=== PATIENT | male | born 1950 | race Caucasian/White ===

== ENCOUNTER 2024-07-27 16:39 | Outpatient (CLI) | payer MEDICARE, SELFPAY ==
[2024-07-27 16:43] LABS: Abs Immature Grans 0.03 10^3/uL (0.0-0.06); Absolute Basophil Count 0.04 10^3/uL (0.0-0.2); Absolute Eosinophil Count 0.41 10^3/uL (0.0-0.7); Absolute Lymphocyte Count 1.08 10^3/uL (1.2-3.4); Absolute Monocyte Count 0.82 10^3/uL (0.1-0.8); Absolute Neutrophil Count 5.25 10^3/uL (1.2-6.7); Basophils % 0.5 %; Eosinophils % 5.4 %; HCT 40.2 % (40.0-50.0); HGB 12.9 g/dL (13.5-17.5); Immature Grans % 0.4 %; Lymphocytes % 14.2 %; MCH 28.5 pg (27.0-33.0); MCHC 32.1 % (32.0-36.0); MCV 89 fL (80-95); MPV 10.2 fL (8.0-11.0); Monocytes % 10.7 %; Neutrophils % 68.8 %; Platelet Count 222 10^3/uL (130-400); RBC 4.53 10^6/uL (4.36-5.78); RDW 14.6 % (11.8-14.1); RDW-SD 47.2 fL; WBC 7.63 10^3/uL (4.4-10.8)
[2024-07-27 17:03] LABS: ALT 23 U/L (16-63); AST 20 U/L (15-37); Albumin 3.7 g/dL (3.4-5.0); Alkaline Phosphatase 109 U/L (46-116); Anion Gap 10.5 mmol/L (3-11); BUN 27 mg/dL (7-18); Bilirubin, Total 0.5 mg/dL (0.2-1.0); CO2 25.5 mmol/L (21.0-32.0); CREATININE 1.2 mg/dL (0.70-1.30); Calcium 9.3 mg/dL (8.5-10.1); Chloride 105 mmol/L (98-107); Estimated GFR 63.85 (mL/min/1.73m2); Glucose 124 mg/dL (74-106); Potassium 4.7 mmol/L (3.5-5.1); Sodium 141 mmol/L (136-145); Total Protein 6.9 g/dL (6.4-8.2)
[2024-08-01 14:41] LABS: DPYD Phenotype Normal metabolizer; DPYD Total Activity Score 2
== END 2024-07-27 16:40 | disposition home or self-care (01) ==
PROVIDERS: Visit Provider Internal Medicine Hematology & Oncology
DX: C20 Malignant neoplasm of rectum (principal)
CPT/HCPCS: 36415; 80053; 81232; 85025

== ENCOUNTER 2024-08-08 02:13 | Outpatient (CLI) | payer MEDICARE, SELFPAY ==
[2024-08-08 08:59] LABS: Abs Immature Grans 0.02 10^3/uL (0.0-0.06); Absolute Basophil Count 0.05 10^3/uL (0.0-0.2); Absolute Eosinophil Count 0.57 10^3/uL (0.0-0.7); Absolute Lymphocyte Count 0.71 10^3/uL (1.2-3.4); Absolute Monocyte Count 0.41 10^3/uL (0.1-0.8); Absolute Neutrophil Count 4.55 10^3/uL (1.2-6.7); Basophils % 0.8 %; HCT 40.8 % (40.0-50.0); HGB 12.9 g/dL (13.5-17.5); Immature Grans % 0.3 %; Lymphocytes % 11.3 %; MCH 28.1 pg (27.0-33.0); MCHC 31.6 % (32.0-36.0); MCV 89 fL (80-95); MPV 9.6 fL (8.0-11.0); Monocytes % 6.5 %; Neutrophils % 72.1 %; Platelet Count 209 10^3/uL (130-400); RBC 4.59 10^6/uL (4.36-5.78); RDW 14.6 % (11.8-14.1); RDW-SD 47.2 fL; WBC 6.31 10^3/uL (4.4-10.8)
[2024-08-08 09:14] LABS: ALT 23 U/L (16-63); AST 21 U/L (15-37); Albumin 3.7 g/dL (3.4-5.0); Alkaline Phosphatase 112 U/L (46-116); Anion Gap 8.8 mmol/L (3-11); BUN 23 mg/dL (7-18); Bilirubin, Total 0.6 mg/dL (0.2-1.0); CO2 28.2 mmol/L (21.0-32.0); CREATININE 1.1 mg/dL (0.70-1.30); Calcium 8.9 mg/dL (8.5-10.1); Chloride 106 mmol/L (98-107); Estimated GFR 70.88 (mL/min/1.73m2); Glucose 180 mg/dL (74-106); Potassium 4.6 mmol/L (3.5-5.1); Sodium 143 mmol/L (136-145); Total Protein 6.9 g/dL (6.4-8.2)
== END 2024-08-08 02:14 | disposition home or self-care (01) ==
LOC: LBO 02:14
PROVIDERS: Visit Provider Internal Medicine Hematology & Oncology
DX: C20 Malignant neoplasm of rectum (principal)
CPT/HCPCS: 36415; 80053; 85025

== ENCOUNTER 2024-08-14 02:40 | Outpatient (CLI) | payer MEDICARE, SELFPAY ==
[2024-08-14 10:38] LABS: Abs Immature Grans 0.05 10^3/uL (0.0-0.06); Absolute Basophil Count 0.03 10^3/uL (0.0-0.2); Absolute Eosinophil Count 0.36 10^3/uL (0.0-0.7); Absolute Lymphocyte Count 0.48 10^3/uL (1.2-3.4); Absolute Monocyte Count 0.38 10^3/uL (0.1-0.8); Absolute Neutrophil Count 3.65 10^3/uL (1.2-6.7); Basophils % 0.6 %; Eosinophils % 7.3 %; HCT 38.8 % (40.0-50.0); HGB 12.3 g/dL (13.5-17.5); Lymphocytes % 9.7 %; MCH 27.7 pg (27.0-33.0); MCHC 31.7 % (32.0-36.0); MCV 87 fL (80-95); MPV 9.4 fL (8.0-11.0); Monocytes % 7.7 %; Neutrophils % 73.7 %; Platelet Count 174 10^3/uL (130-400); RBC 4.44 10^6/uL (4.36-5.78); RDW 14.6 % (11.8-14.1); WBC 4.95 10^3/uL (4.4-10.8)
[2024-08-14 11:07] LABS: ALT 19 U/L (16-63); AST 18 U/L (15-37); Albumin 3.5 g/dL (3.4-5.0); Alkaline Phosphatase 89 U/L (46-116); Anion Gap 9.8 mmol/L (3-11); BUN 22 mg/dL (7-18); Bilirubin, Total 0.5 mg/dL (0.2-1.0); CO2 26.2 mmol/L (21.0-32.0); CREATININE 1.2 mg/dL (0.70-1.30); Chloride 106 mmol/L (98-107); Estimated GFR 63.85 (mL/min/1.73m2); Glucose 166 mg/dL (74-106); Potassium 4.7 mmol/L (3.5-5.1); Sodium 142 mmol/L (136-145); Total Protein 6.6 g/dL (6.4-8.2)
== END 2024-08-14 02:41 | disposition home or self-care (01) ==
LOC: LBO 02:41
PROVIDERS: Visit Provider Internal Medicine Hematology & Oncology
DX: C20 Malignant neoplasm of rectum (principal)
CPT/HCPCS: 36415; 80053; 85025

== ENCOUNTER 2024-08-21 12:26 | Outpatient (CLI) | payer MEDICARE, SELFPAY ==
[2024-08-21 12:25] LABS: Abs Immature Grans 0.02 10^3/uL (0.0-0.06); Absolute Basophil Count 0.02 10^3/uL (0.0-0.2); Absolute Eosinophil Count 0.45 10^3/uL (0.0-0.7); Absolute Lymphocyte Count 0.37 10^3/uL (1.2-3.4); Absolute Monocyte Count 0.34 10^3/uL (0.1-0.8); Absolute Neutrophil Count 3.23 10^3/uL (1.2-6.7); Basophils % 0.5 %; Eosinophils % 10.2 %; HCT 35.9 % (40.0-50.0); HGB 11.9 g/dL (13.5-17.5); Immature Grans % 0.5 %; Lymphocytes % 8.4 %; MCH 28.4 pg (27.0-33.0); MCHC 33.1 % (32.0-36.0); MCV 86 fL (80-95); MPV 9.1 fL (8.0-11.0); Monocytes % 7.7 %; Neutrophils % 72.7 %; Platelet Count 159 10^3/uL (130-400); RBC 4.19 10^6/uL (4.36-5.78); RDW-SD 44.4 fL; WBC 4.43 10^3/uL (4.4-10.8)
[2024-08-21 12:41] LABS: ALT 21 U/L (16-63); AST 17 U/L (15-37); Albumin 3.6 g/dL (3.4-5.0); Alkaline Phosphatase 85 U/L (46-116); Anion Gap 12.9 mmol/L (3-11); BUN 27 mg/dL (7-18); Bilirubin, Total 0.7 mg/dL (0.2-1.0); CO2 23.1 mmol/L (21.0-32.0); CREATININE 1.2 mg/dL (0.70-1.30); Calcium 8.9 mg/dL (8.5-10.1); Chloride 105 mmol/L (98-107); Estimated GFR 63.85 (mL/min/1.73m2); Glucose 118 mg/dL (74-106); Potassium 4.5 mmol/L (3.5-5.1); Sodium 141 mmol/L (136-145); Total Protein 6.7 g/dL (6.4-8.2)
== END 2024-08-21 12:27 | disposition home or self-care (01) ==
PROVIDERS: Visit Provider Internal Medicine Hematology & Oncology
DX: C20 Malignant neoplasm of rectum (principal)
CPT/HCPCS: 36415; 80053; 85025

== ENCOUNTER 2024-09-07 11:42 | Outpatient (REF) | payer MEDICARE, SELFPAY ==
[2024-09-07 11:49] LABS: Abs Immature Grans 0.10 10^3/uL (0.0-0.06); HCT 29.6 % (40.0-50.0); HGB 10.0 g/dL (13.5-17.5); Immature Grans % 2.0 %; MCH 28.9 pg (27.0-33.0); MCHC 33.8 % (32.0-36.0); MCV 86 fL (80-95); MPV 9.5 fL (8.0-11.0); Platelet Count 129 10^3/uL (130-400); RBC 3.46 10^6/uL (4.36-5.78); RDW 16.1 % (11.8-14.1); RDW-SD 46.5 fL; WBC 4.91 10^3/uL (4.4-10.8)
[2024-09-07 12:22] LABS: ALT 26 U/L (16-63); AST 17 U/L (15-37); Albumin 3.0 g/dL (3.4-5.0); Alkaline Phosphatase 89 U/L (46-116); Anion Gap 7.6 mmol/L (3-11); BUN 13 mg/dL (7-18); Bilirubin, Total 0.8 mg/dL (0.2-1.0); CO2 30.4 mmol/L (21.0-32.0); Calcium 8.1 mg/dL (8.5-10.1); Chloride 105 mmol/L (98-107); Estimated GFR 90.18 (mL/min/1.73m2); Glucose 136 mg/dL (74-106); Potassium 3.4 mmol/L (3.5-5.1); Sodium 143 mmol/L (136-145); Total Protein 5.3 g/dL (6.4-8.2)
[2024-10-07 11:37] VITALS: BP 107/63; PULSE 60; RESP 20; TEMP 36.6; O2SAT 99
== END 2024-09-07 11:43 | disposition home or self-care (01) ==
LOC: LBN 11:42
PROVIDERS: Visit Provider Internal Medicine Hematology & Oncology
DX: C20 Malignant neoplasm of rectum (principal)
CPT/HCPCS: 80053; 85025

== ENCOUNTER 2024-10-19 13:00 | Outpatient (REF) | payer MEDICARE, SELFPAY ==
[2024-10-19 13:07] LABS: Abs Immature Grans 0.01 10^3/uL (0.0-0.06); HCT 29.3 % (40.0-50.0); HGB 9.9 g/dL (13.5-17.5); Immature Grans % 0.2 %; MCH 30.7 pg (27.0-33.0); MCHC 33.8 % (32.0-36.0); MCV 91 fL (80-95); MPV 10.6 fL (8.0-11.0); Platelet Count 125 10^3/uL (130-400); RBC 3.22 10^6/uL (4.36-5.78); RDW 19.7 % (11.8-14.1); RDW-SD 65.6 fL; WBC 4.62 10^3/uL (4.4-10.8)
[2024-10-19 13:29] LABS: ALT 22 U/L (16-63); AST 25 U/L (15-37); Albumin 3.1 g/dL (3.4-5.0); Alkaline Phosphatase 107 U/L (46-116); Anion Gap 13.1 mmol/L (3-11); BUN 12 mg/dL (7-18); Bilirubin, Total 0.7 mg/dL (0.2-1.0); CO2 21.9 mmol/L (21.0-32.0); Calcium 8.6 mg/dL (8.5-10.1); Chloride 109 mmol/L (98-107); Estimated GFR 90.18 (mL/min/1.73m2); Glucose 170 mg/dL (74-106); Potassium 3.9 mmol/L (3.5-5.1); Sodium 144 mmol/L (136-145); Total Protein 5.9 g/dL (6.4-8.2)
== END 2024-10-19 13:01 | disposition home or self-care (01) ==
LOC: LBN 13:00
PROVIDERS: Visit Provider Internal Medicine Hematology & Oncology
DX: C20 Malignant neoplasm of rectum (principal)
CPT/HCPCS: 80053; 85025

== ENCOUNTER 2024-11-02 14:05 | Outpatient (CLI) | payer MEDICARE, SELFPAY ==
[2024-11-02 09:06] LABS: Abs Immature Grans 0.02 10^3/uL (0.0-0.06); HCT 31.2 % (40.0-50.0); HGB 10.2 g/dL (13.5-17.5); Immature Grans % 0.6 %; MCH 30.6 pg (27.0-33.0); MCHC 32.7 % (32.0-36.0); MCV 94 fL (80-95); MPV 10.5 fL (8.0-11.0); Platelet Count 108 10^3/uL (130-400); RBC 3.33 10^6/uL (4.36-5.78); RDW 18.8 % (11.8-14.1); RDW-SD 63.0 fL; WBC 3.22 10^3/uL (4.4-10.8)
[2024-11-02 09:27] LABS: ALT 23 U/L (16-63); AST 22 U/L (15-37); Albumin 3.2 g/dL (3.4-5.0); Alkaline Phosphatase 137 U/L (46-116); Anion Gap 8.4 mmol/L (3-11); BUN 17 mg/dL (7-18); Bilirubin, Total 0.6 mg/dL (0.2-1.0); CO2 25.6 mmol/L (21.0-32.0); Calcium 8.5 mg/dL (8.5-10.1); Chloride 109 mmol/L (98-107); Estimated GFR 79.47 (mL/min/1.73m2); Glucose 211 mg/dL (74-106); Potassium 3.8 mmol/L (3.5-5.1); Sodium 143 mmol/L (136-145); Total Protein 6.0 g/dL (6.4-8.2)
== END 2024-11-02 14:06 | disposition home or self-care (01) ==
LOC: LBO 14:05
PROVIDERS: Visit Provider Internal Medicine Hematology & Oncology
DX: C20 Malignant neoplasm of rectum (principal)
CPT/HCPCS: 36415; 80053; 85025

== ENCOUNTER 2024-11-04 00:32 | Outpatient (RCR) | payer MEDICARE, SELFPAY ==
[2024-10-21 14:21] VITALS: BP 117/49; PULSE 62; RESP 16; TEMP 36.9; O2SAT 97
[2024-10-21] MEDS: Normal Saline Flush 10 ML SYR IVP (14:31)
[2024-11-04 11:42] VITALS: BP 125/50; PULSE 56; RESP 16; TEMP 36.5; O2SAT 98
[2024-11-07] MEDS: Normal Saline Flush 10 ML SYR IVP (12:31)
== END 2024-11-05 23:59 | disposition home or self-care (01) ==
LOC: INF 00:32
PROVIDERS: Visit Provider Internal Medicine Hematology & Oncology
DX: Z45.2 Encounter for adjustment and management of vascular access device (principal)
CPT/HCPCS: 96523

== ENCOUNTER 2024-12-02 00:09 | Outpatient (RCR) | payer MEDICARE, SELFPAY ==
[2024-11-16] MEDS: Normal Saline Flush 10 ML SYR IVP (08:41)
[2024-11-16 08:46] LABS: Abs Immature Grans 0.01 10^3/uL (0.0-0.06); HCT 28.4 % (40.0-50.0); HGB 9.7 g/dL (13.5-17.5); Immature Grans % 0.5 %; MCH 32.0 pg (27.0-33.0); MCHC 34.2 % (32.0-36.0); MCV 94 fL (80-95); MPV 10.4 fL (8.0-11.0); Platelet Count 104 10^3/uL (130-400); RBC 3.03 10^6/uL (4.36-5.78); RDW 18.8 % (11.8-14.1); RDW-SD 62.7 fL
[2024-11-16 08:58] LABS: ALT 31 U/L (16-63); AST 25 U/L (15-37); Albumin 3.2 g/dL (3.4-5.0); Alkaline Phosphatase 142 U/L (46-116); Anion Gap 8.2 mmol/L (3-11); BUN 14 mg/dL (7-18); Bilirubin, Total 0.7 mg/dL (0.2-1.0); CO2 25.8 mmol/L (21.0-32.0); Calcium 8.9 mg/dL (8.5-10.1); Chloride 109 mmol/L (98-107); Glucose 203 mg/dL (74-106); Potassium 3.7 mmol/L (3.5-5.1); Sodium 143 mmol/L (136-145); Total Protein 5.7 g/dL (6.4-8.2)
[2024-11-16 09:39] LABS: Acanthocytes 1+; Ovalocytes 2+; Poikilocytes 2+; Tear Drop Cells 2+
[2024-11-16 09:43] LABS: WBC 1.87 10^3/uL (4.4-10.8)
[2024-11-18 10:48] VITALS: BP 159/55; PULSE 55
[2024-11-18] MEDS: Normal Saline Flush 10 ML SYR IVP (11:14)
[2024-11-30] MEDS: Normal Saline Flush 10 ML SYR IVP (07:41)
[2024-11-30 08:25] LABS: Abs Immature Grans 0.02 10^3/uL (0.0-0.06); HCT 28.9 % (40.0-50.0); HGB 9.6 g/dL (13.5-17.5); Immature Grans % 0.8 %; MCH 32.1 pg (27.0-33.0); MCHC 33.2 % (32.0-36.0); MCV 97 fL (80-95); MPV 11.7 fL (8.0-11.0); RBC 2.99 10^6/uL (4.36-5.78); RDW 18.8 % (11.8-14.1); RDW-SD 65.9 fL; WBC 2.49 10^3/uL (4.4-10.8)
[2024-11-30 08:45] LABS: ALT 32 U/L (16-63); AST 29 U/L (15-37); Albumin 3.3 g/dL (3.4-5.0); Alkaline Phosphatase 104 U/L (46-116); Anion Gap 7.2 mmol/L (3-11); BUN 12 mg/dL (7-18); Bilirubin, Total 0.8 mg/dL (0.2-1.0); CO2 26.8 mmol/L (21.0-32.0); Calcium 8.7 mg/dL (8.5-10.1); Chloride 111 mmol/L (98-107); Glucose 129 mg/dL (74-106); Potassium 3.9 mmol/L (3.5-5.1); Sodium 145 mmol/L (136-145); Total Protein 5.9 g/dL (6.4-8.2)
[2024-11-30 08:51] LABS: Platelet Count 87 10^3/uL (130-400)
[2024-11-30 08:52] LABS: Poikilocytes 2+
[2024-12-02 10:23] VITALS: BP 126/71; PULSE 58; RESP 14; TEMP 36.3; O2SAT 99
[2024-12-02] MEDS: Normal Saline Flush 10 ML SYR IVP (10:33)
== END 2024-12-05 23:59 | disposition home or self-care (01) ==
LOC: INF 00:09
PROVIDERS: Visit Provider Internal Medicine Hematology & Oncology
DX: C20 Malignant neoplasm of rectum (principal); Z45.2 Encounter for adjustment and management of vascular access device
CPT/HCPCS: 36591; 80053; 96523; 85025

== ENCOUNTER 2024-12-30 00:18 | Outpatient (RCR) | payer MEDICARE, SELFPAY ==
[2024-12-14] MEDS: Normal Saline Flush 10 ML SYR IVP (07:44)
[2024-12-14 07:55] LABS: Abs Immature Grans 0.02 10^3/uL (0.0-0.06); HCT 29.2 % (40.0-50.0); HGB 10.1 g/dL (13.5-17.5); Immature Grans % 0.6 %; MCH 33.4 pg (27.0-33.0); MCHC 34.6 % (32.0-36.0); MCV 97 fL (80-95); MPV 11.9 fL (8.0-11.0); Platelet Count 100 10^3/uL (130-400); RBC 3.02 10^6/uL (4.36-5.78); RDW 18.1 % (11.8-14.1); RDW-SD 63.7 fL; WBC 3.26 10^3/uL (4.4-10.8)
[2024-12-14 08:16] LABS: ALT 29 U/L (16-63); AST 25 U/L (15-37); Albumin 3.2 g/dL (3.4-5.0); Alkaline Phosphatase 120 U/L (46-116); Anion Gap 11.2 mmol/L (3-11); BUN 11 mg/dL (7-18); Bilirubin, Total 0.8 mg/dL (0.2-1.0); CO2 24.8 mmol/L (21.0-32.0); Calcium 8.5 mg/dL (8.5-10.1); Chloride 108 mmol/L (98-107); Estimated GFR 79.47 (mL/min/1.73m2); Glucose 124 mg/dL (74-106); Potassium 3.6 mmol/L (3.5-5.1); Sodium 144 mmol/L (136-145); Total Protein 5.8 g/dL (6.4-8.2)
[2024-12-16 10:00] VITALS: BP 134/53; PULSE 58; RESP 16; TEMP 36.5; O2SAT 94
[2024-12-16] MEDS: Normal Saline Flush 10 ML SYR IVP (10:08)
[2024-12-28] MEDS: Normal Saline Flush 10 ML SYR IVP (09:32)
[2024-12-28 09:40] LABS: Abs Immature Grans 0.02 10^3/uL (0.0-0.06); HCT 30.9 % (40.0-50.0); HGB 10.4 g/dL (13.5-17.5); Immature Grans % 0.5 %; MCH 33.4 pg (27.0-33.0); MCHC 33.7 % (32.0-36.0); MCV 99 fL (80-95); MPV 11.7 fL (8.0-11.0); Platelet Count 105 10^3/uL (130-400); RBC 3.11 10^6/uL (4.36-5.78); RDW 17.7 % (11.8-14.1); RDW-SD 64.7 fL; WBC 4.02 10^3/uL (4.4-10.8)
[2024-12-28 10:02] LABS: ALT 30 U/L (16-63); AST 28 U/L (15-37); Albumin 3.4 g/dL (3.4-5.0); Alkaline Phosphatase 124 U/L (46-116); Anion Gap 11.0 mmol/L (3-11); BUN 15 mg/dL (7-18); Bilirubin, Total 0.8 mg/dL (0.2-1.0); CO2 25.0 mmol/L (21.0-32.0); Calcium 8.8 mg/dL (8.5-10.1); Chloride 106 mmol/L (98-107); Estimated GFR 70.88 (mL/min/1.73m2); Glucose 180 mg/dL (74-106); Potassium 4.0 mmol/L (3.5-5.1); Sodium 142 mmol/L (136-145); Total Protein 6.2 g/dL (6.4-8.2)
[2024-12-30 11:48] VITALS: BP 123/55; PULSE 69; RESP 14; TEMP 36.3; O2SAT 98
[2024-12-30] MEDS: Normal Saline Flush 10 ML SYR IVP (12:18)
== END 2025-01-05 23:59 | disposition home or self-care (01) ==
LOC: INF 00:18
PROVIDERS: Visit Provider Internal Medicine Hematology & Oncology
DX: C20 Malignant neoplasm of rectum (principal); Z45.2 Encounter for adjustment and management of vascular access device
CPT/HCPCS: 36591; 80053; 96523; 85025

== ENCOUNTER 2025-01-13 00:03 | Outpatient (RCR) | payer MEDICARE, SELFPAY ==
[2025-01-11 09:34] LABS: Abs Immature Grans 0.01 10^3/uL (0.0-0.06); HCT 28.5 % (40.0-50.0); HGB 9.5 g/dL (13.5-17.5); Immature Grans % 0.3 %; MCH 33.2 pg (27.0-33.0); MCHC 33.3 % (32.0-36.0); MCV 100 fL (80-95); MPV 10.9 fL (8.0-11.0); RBC 2.86 10^6/uL (4.36-5.78); RDW 17.1 % (11.8-14.1); RDW-SD 63.0 fL; WBC 3.28 10^3/uL (4.4-10.8)
[2025-01-11] MEDS: Normal Saline Flush 10 ML SYR IVP (09:38)
[2025-01-11 09:50] LABS: Platelet Count 89 10^3/uL (130-400); Tear Drop Cells 2+
[2025-01-11 09:58] LABS: ALT 24 U/L (16-63); AST 26 U/L (15-37); Albumin 3.2 g/dL (3.4-5.0); Alkaline Phosphatase 126 U/L (46-116); Anion Gap 9.8 mmol/L (3-11); BUN 12 mg/dL (7-18); Bilirubin, Total 0.6 mg/dL (0.2-1.0); CO2 25.2 mmol/L (21.0-32.0); Calcium 8.6 mg/dL (8.5-10.1); Chloride 105 mmol/L (98-107); Estimated GFR 79.47 (mL/min/1.73m2); Glucose 192 mg/dL (74-106); Potassium 4.1 mmol/L (3.5-5.1); Sodium 140 mmol/L (136-145); Total Protein 5.9 g/dL (6.4-8.2)
[2025-01-13 11:47] VITALS: BP 124/56; PULSE 63; RESP 16; TEMP 36.3; O2SAT 99
[2025-01-13] MEDS: Normal Saline Flush 10 ML SYR IVP (11:50)
== END 2025-02-04 23:59 | disposition home or self-care (01) ==
LOC: INF 00:03
PROVIDERS: Visit Provider Internal Medicine Hematology & Oncology
DX: C20 Malignant neoplasm of rectum (principal); Z45.2 Encounter for adjustment and management of vascular access device
CPT/HCPCS: 36591; 80053; 96523; 85025